=== PATIENT | female | born 1935 | race Caucasian/White ===

== ENCOUNTER → 2016-11-08 | Outpatient (CLI) | payer OTHER ==
[2016-11-08 12:36] LABS: ASPARTATE AMINO TRANSFERASE 33 IU/L (8-39); BILIRUBIN,TOTAL 0.7 mg/dL (0.3-1.2); BLOOD UREA NITROGEN 27 mg/dL (7-22); CALCIUM 9.6 mg/dL (8.7-10.7); CHLORIDE 107 meq/L (98-112); CREATININE 1.8 mg/dL (0.50-1.20); GLUCOSE 95 mg/dL (78-110); POTASSIUM 4.2 meq/L (3.8-5.2); SODIUM 144 meq/L (135-145); TOTAL PROTEIN 7.5 g/dL (6.1-8.0)
== END ==
LOC: LAB 11:21
PROVIDERS: ATTEND Internal Medicine Gastroenterology
DX: K86.81 Exocrine pancreatic insufficiency (principal); K86.1 Other chronic pancreatitis
CPT/HCPCS: 36415; 80053; 83690

== ENCOUNTER → 2016-11-14 | Outpatient (CLI) | payer OTHER | LOC: MMPC 11:11 | PROVIDERS: ATTEND Internal Medicine | DX: I48.91 Unspecified atrial fibrillation (principal); K86.1 Other chronic pancreatitis; J44.9 Chronic obstructive pulmonary disease, unspecified; E53.8 Deficiency of other specified B group vitamins; Z95.0 Presence of cardiac pacemaker | CPT/HCPCS: 99214; G0463; J3420 ==

== ENCOUNTER → 2017-01-04 | Outpatient (CLI) | payer OTHER | LOC: MMPC 11:11 | PROVIDERS: ATTEND Internal Medicine | DX: E53.8 Deficiency of other specified B group vitamins (principal); M81.0 Age-related osteoporosis without current pathological fracture | CPT/HCPCS: G0463; J0897; J3420 ==

== ENCOUNTER 2017-02-06 18:20 | Emergency (ER) | payer OTHER ==
[2017-02-06] MEDS ORDERED: NORMAL SALINE 10 ML SYRINGE FLUSH IVP PRN (18:51)
--- NOTE | 2017-02-06 19:02 | PDOC ---
Dyspnea HPI - General Chief Complaint: General Medical Stated Complaint: SWELLING LE RAHEEM, SHORTNESS OF BREATH Date Seen by Provider: 02/06/17 Time Seen by Provider: 19:02 - History of Present Illness Initial Comments: Patient is a very nice 81-year-old woman who presents to the emergency department complaining that she has increased weakness tiredness and some subjective increase in dyspnea as well. She has history of multiple strokes which kind of keeps her down but she feels like she is doing a little bit worse than normal. She also believes she has had some recent unexplained weight gain is concerned that his fluid weight. She apparently discussed this with her primary care provider was encouraged come to the emergency department for evaluation. She denies any fever or chills or cough or dizziness or syncope no substantial GI changes. - Patient Home Medications Home Medications: Home Medications Pravastatin Sodium [Pravachol Tab] 1 tab ORAL QD #90 tab 01/22/16 Gabapentin 2 cap PO QHS #180 cap 02/16/16 Aspirin [Aspir 81] 1 tab ORAL QD #0 tab 08/01/16 Ferrous Sulfate 1 tab PO BID #0 tab 08/01/16 JPM-Cyanocobalamin [Jpm - Vitamin B-12] 1,000 mcg IM MONTHLY #1 ml 08/01/16 Magnesium Oxide 1 tab PO BID #0 tab 08/01/16 Multivitamin [Multivitamins] 1 tab PO DAILY #0 tab 08/01/16 Thiamine HCl [B-1] 1 tab PO QD #0 tab 08/01/16 Warfarin Sodium 1 tab PO DAILY #0 tab 08/01/16 Acetaminophen 1 tab PO Q4H PRN #120 tab 08/12/16 Multivitamin [Multi-Vitamin Daily] 1 each PO QD #30 tab 08/12/16 Azithromycin 1 tab PO DAILY #3 tab 10/03/16 Metoprolol Succinate 1 tab PO DAILY #0 tab 10/06/16 Lipase/Protease/Amylase [Zenpep Dr 10,000 Units Capsule] 1 each PO cap Azithromycin 1 tab PO DAILY #3 tab 11/21/16 Pantoprazole Sodium 1 tab PO DAILY #90 tab 11/23/16 Allopurinol 1 tab ORAL QD #90 tab 12/06/16 Zolpidem Tartrate 1 tab PO QHS PRN #30 tab 01/31/17 - Patient Allergies Allergies/Adverse Reactions: Allergies Allergy/AdvReac Type Severity Reaction Status Date / Time latex [Latex] Allergy Intermediate BREAK OUT Verified 02/06/17 18:41 WITH RASH Penicillins AdvReac Severe NAUSEA Verified 02/06/17 18:41 egg [Egg] AdvReac Intermediate NAUSEA Verified 02/06/17 18:41 lisinopril AdvReac Intermediate COUGH Verified 02/06/17 18:41 Past Medical History - heen HEENT History: Denies History Cardiovascular History: Hypertension, CAD, Arrhythmia, Pacemaker, Hyperlipidemia , Other (please comment) Additional Cardiovasular History: atrial septal defect Respiratory History: COPD Gastrointestinal History: GERD, Pancreatitis Genitourinary History: Renal Disease, Kidney Stones Endocrine History: Hypothyroidism Musculoskeletal History: Arthritis, Gout Neurological History: CVA, Other (please comment) Additional Neurological History: embolic stroke Blood Disorders: Anemia 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 Psychiatric History: Denies History History of Sexually Transmitted Diseases: No Female Reproductive History: Breast Lumps, Hysterectomy Obstetrical History: Denies History Cancer History: Denies History In Past Year Been Physically Harmed or Verbally Threatened: No History of MDRO: No History of Other Communicable Diseases: No Tobacco Use: Current Every Day Smoker Alcohol Use: None Substance Use Type: None Previous Surgical History: Yes Type / Date of Surgery: APPY, T&A, OPEN HEART, PACEMAKER, CAROTID ARTERY, KNEE, PARTIAL HYST, PARATHYROIDECTOMY Anesthesia Reactions: No Significant Family History: No pertinent family hx Past Medical History Reviewed: Reviewed - No Changes ROS - Limitations ROS Limitations: No Limitations Constitution: REPORTS: Denies Symptoms Neurological: REPORTS: Denies Neuro Symptoms Gastrointestinal: REPORTS: Denies GI Symptoms Musculoskeletal: REPORTS: Denies MS Symptoms Eyes: REPORTS: Denies Symptoms Dyspnea Physical Exam - General Appearance General Appearance: REPORTS: Alert, Cooperative, No Acute Distress - HEENT HEENT: POSITIVE: Head Inspection Nml, Eyes Inspection Nml - Respiratory Respiratory: REPORTS: No Respiratory Distress, Other (few crackles otherwise clear) - Cardiovascular Cardiovascular: REPORTS: Regular Rate and Rhythm - Abdomen Abdomen: Soft: (All Quadrants), Normal Bowel Sounds: (All Quadrants), Denies Tenderness: (All Quadrants) - Skin Skin: REPORTS: Intact, Normal For Race - Extremities Additional Extremities Details: 1+ pitting edema in the ankles - Neurological / Psychological Neurological: POSITIVE: Affect Apporpriate, Oriented X3 Dyspnea Progress - Results Reviewed by me Xrays/CTs/US Reviewed by me: Yes Lab Results Reviewed: Yes Lab Results:: Laboratory Results 02/06/17 Range/Units 19:04 WBC 6.46 (4.8-10.8) 10^3/uL RBC 3.79 L (4.20-5.40) 10^6/uL Hgb 12.3 (12.0-16.0) g/dL Hct 37.7 (37.0-47.0) % MCV 99.5 H (81-99) FL MCH 32.5 H (27-31) PG MCHC 32.6 L (33-37) g/dL RDW Std Deviation 60.4 H (39-50) fL RDW Coeff of Padmini 17.0 H (11.5-14.5) % Plt Count 188 (140-350) 10*3/uL MPV 10.3 (7.4-12.2) FL Immature Gran % (Auto) 0.5 (0-5) % Neut % (Auto) 60.4 (50-80) % Lymph % (Auto) 20.9 (10-50) % Dickenson % (Auto) 15.6 H (5-15) % Eos % (Auto) 2.0 (0-8) % Baso % (Auto) 0.6 (0-1) % Immature Gran # (Auto) 0.03 10*3/UL Neut # (Auto) 3.90 10*3/UL Lymph # (Auto) 1.35 10*3/uL Dickenson # (Auto) 1.01 H (0.3-0.8) 10*3/UL Eos # (Auto) 0.13 10*3/UL Baso # (Auto) 0.04 10*3/UL WBC Morphology Comment Normal morphology (NORM) Plt Morphology Comment Normal morphology (NORM) RBC Morph Comment Normal morphology (NORM) PT 30.8 H (9.7-11.4) secs INR 2.93 (0.00-5.90) N/A Sodium 138 (135-145) meq/L Potassium 4.2 (3.8-5.2) meq/L Chloride 107 (98-112) meq/L Carbon Dioxide 20 L (23-33) meq/L Anion Gap 11 (5-20) BUN 26 H (7-22) mg/dL Creatinine 1.4 H (0.50-1.20) mg/dL Estimated GFR Marketing Strategist BUN/Creatinine Ratio 18.57 (6-20) Glucose 81 (78-110) mg/dL Calculated Osmolality 289.0 (267-292) mOsm/kg Calcium 8.7 (8.7-10.7) mg/dL Total Bilirubin 1.1 (0.3-1.2) mg/dL AST 33 (8-39) IU/L ALT 18 (9-52) IU/L Alkaline Phosphatase 241 H (38-126) IU/L NT-Pro-B Natriuret Pep 3490 H (0-450) PG/ML Total Protein 7.8 (6.1-8.0) g/dL Albumin 4.1 (3.5-4.8) g/dL Globulin 3.8 (2.50-4.10) g/dL Albumin/Globulin Ratio 1.00 L (1.3-2.0) mg/g - Patient's Progress MDM / ED Course: This patient presented with some vague symptoms of increased lethargy and some increase in shortness of breath over last few days. Her chest x-ray is not terribly remarkable but she does seem to have a right-sided pleural effusion. Ultimately her oxygen saturations are okay she is not She is not tachycardic but she does have a significantly elevated BNP. I'm not sure what her baseline BNP is but I'm assuming that it somewhat elevated given the fact that she has a BNP of greater than 3000 and does not appear to be in any sort of decompensated heart failure. She has not been taking any Lasix recently. I've encouraged her start back on 1 Lasix tab a day and to see her supervisor stave cutting and primary care physician in the very near future. I've also reiterated sodium restriction and fluid restriction for her. I have stressed the importance of getting electrolytes monitored closely after starting back on her diuretics. She is going to see her primary care provider or supervisor stave cutting in the next 1-2 days. Patient Care Time - Estimated PCT Patient Care Time (In Minutes): 30 Vital Signs - VS Reviewed Vital Signs Reviewed: Yes Discharge Clinical Impression: CHF (congestive heart failure) Qualifiers: Qualifier Code: (I50.23) Acute on chronic systolic (congestive) heart failure Discharge Disposition: Discharged to Home Condition: Stable Patient Instructions Given at Discharge: Heart Failure (ED) Additional Instructions: You're given a injection of Lasix tonight. This should help get rid of fluid from your tissues and lungs. Please take one of your home Lasix tabs daily until seen by your primary care doctor or supervisor stave cutting EDB seen in the next 1-2 days by cardiology or primary care to evaluate sure electrolytes your kidney function and your respiratory status Return here to the emergency department immediately if you have increasing shortness of breath or any other signs or symptoms of concern Follow Up With: SANDRINE DYER [Primary Care Provider] -
[2017-02-06 19:10] LABS: BASOPHILS # (AUTO) 0.04 10*3/UL; BASOPHILS % (AUTO) 0.6 % (0-1); EOSINOPHILS # (AUTO) 0.13 10*3/UL; HEMATOCRIT 37.7 % (37.0-47.0); HEMOGLOBIN 12.3 g/dL (12.0-16.0); LYMPHOCYTES # (AUTO) 1.35 10*3/uL; MEAN CORPUSCULAR HEMOGLOBIN 32.5 PG (27-31); MEAN CORPUSCULAR HGB CONC 32.6 g/dL (33-37); MEAN CORPUSCULAR VOLUME 99.5 FL (81-99); MEAN PLATELET VOLUME 10.3 FL (7.4-12.2); MONOCYTES # (AUTO) 1.01 10*3/UL (0.3-0.8); MONOCYTES % (AUTO) 15.6 % (5-15); NEUTROPHILS % (AUTO) 60.4 % (50-80); RED BLOOD COUNT 3.79 10^6/uL (4.20-5.40)
[2017-02-06 19:17] LABS: BLOOD UREA NITROGEN 26 mg/dL (7-22); BUN/CREATININE RATIO 18.57 (6-20); CALCIUM 8.7 mg/dL (8.7-10.7); PLATELET MORPHOLOGY COMMENT NORMAL MORPHOLOGY (NORM); RBC MORPHOLOGY COMMENT NORMAL MORPHOLOGY (NORM); SERUM ALBUMIN 4.1 g/dL (3.5-4.8); WBC MORPHOLOGY COMMENT NORMAL MORPHOLOGY (NORM)
[2017-02-06] MEDS ORDERED: FUROSEMIDE 10 MG/1 ML - 4 ML IVP ONE (19:30)
--- NOTE | 2017-02-06 19:31 | DI ---
PA /LATERAL CHEST X-RAY, 02/06/2017 6:51 PM : Clinical History: Dyspnea. History of CHF. Previous Exam: 01/13/2016. There is no acute soft tissue or bony abnormality. The patient is status post CABG. There is a dual-c hamber pacemaker and the leads are in the appropriate position. There is cardiomegaly with CHF. The h eart has a "globular" configuration and there is no separation of the epicardial fat pad from the per icardial fat pad suggesting this is a cardiomyopathy. With the underlying coronary artery disease, th e etiology most likely is ischemic cardiomyopathy. There is a small right pleural effusion with right lower lobe atelectasis. There is substantial "tram tracking" indicating chronic bronchitis or more l ikely chronic bronchiectasis. It is most pronounced on the right side raising the possibility of machine feeder raw stock bebeto aspiration pneumonia. Mediastinal structures are normal. There are no pulmonary nodules. Readin. Cardiomegaly with CHF. The heart has a "globular" configuration without evidence of separation of the epicardial fat pad from the pericardial fat pad making a cardiomyopathy more likely. With underl radha coronary artery disease, ischemic cardiomyopathy is the most likely etiology. 2. Small right pleural effusion with right lower lobe atelectasis. This patient may also have underl radha chronic bronchiectasis secondary to chronic aspiration pneumonia.
[2017-02-07 02:48] VITALS: RESP 20; TEMP 97.5
== END 2017-02-06 21:25 | disposition home or self-care (01) ==
LOC: ER 18:20
DX: I50.23 Acute on chronic systolic (congestive) heart failure (principal); R06.00 Dyspnea, unspecified; R53.1 Weakness; Z72.0 Tobacco use
CPT/HCPCS: 71020; 80053; 83880; 85025; 85610; 96374; 99283; J1940

== ENCOUNTER → 2017-02-09 | Outpatient (CLI) | payer OTHER ==
[2017-02-09 16:23] LABS: BLOOD UREA NITROGEN 28 mg/dL (7-22); BUN/CREATININE RATIO 15.55 (6-20); LIPASE 195 IU/L (23-300); SERUM ALBUMIN 3.8 g/dL (3.5-4.8)
== END ==
LOC: LAB 14:37
PROVIDERS: ATTEND Internal Medicine Gastroenterology
DX: K86.81 Exocrine pancreatic insufficiency (principal)
CPT/HCPCS: 36415; 80053; 83690

== ENCOUNTER → 2017-02-13 | Outpatient (CLI) | payer OTHER ==
[2017-02-13 17:03] LABS: BLOOD UREA NITROGEN 24 mg/dL (7-22); BUN/CREATININE RATIO 13.33 (6-20); CALCIUM 8.9 mg/dL (8.7-10.7); SERUM ALBUMIN 3.8 g/dL (3.5-4.8)
[2017-02-13 17:49] LABS: PHOSPHORUS 3.4 mg/dl (2.4-4.3)
== END ==
LOC: MOB LAB 14:55
PROVIDERS: ATTEND Internal Medicine
DX: I50.42 Chronic combined systolic (congestive) and diastolic (congestive) heart failure (principal); E21.3 Hyperparathyroidism, unspecified; I10 Essential (primary) hypertension; F17.200 Nicotine dependence, unspecified, uncomplicated
CPT/HCPCS: 80053; 82306; 83880; 84100

== ENCOUNTER → 2017-03-10 | Outpatient (CLI) | payer OTHER ==
[2017-03-10 10:52] LABS: BLOOD UREA NITROGEN 23 mg/dL (7-22); BUN/CREATININE RATIO 15.33 (6-20); CALCIUM 9.2 mg/dL (8.7-10.7); LIPASE 186 IU/L (23-300); SERUM ALBUMIN 3.9 g/dL (3.5-4.8)
== END ==
LOC: LAB 09:48
PROVIDERS: ATTEND Internal Medicine Gastroenterology
DX: K86.1 Other chronic pancreatitis (principal); K86.81 Exocrine pancreatic insufficiency
CPT/HCPCS: 36415; 80053; 82150; 83690

== ENCOUNTER → 2017-03-21 | Outpatient (CLI) | payer OTHER ==
[2017-03-21 10:27] LABS: BLOOD UREA NITROGEN 26 mg/dL (7-22); BUN/CREATININE RATIO 18.57 (6-20); CALCIUM 8.4 mg/dL (8.7-10.7); PHOSPHORUS 3.4 mg/dl (2.4-4.3); SERUM ALBUMIN 3.9 g/dL (3.5-4.8)
== END ==
LOC: LAB 09:53
PROVIDERS: ATTEND Internal Medicine
DX: I50.42 Chronic combined systolic (congestive) and diastolic (congestive) heart failure (principal); I12.9 Hypertensive chronic kidney disease with stage 1 through stage 4 chronic kidney disease, or unspecified chronic kidney disease; N18.3 Chronic kidney disease, stage 3 (moderate); D63.1 Anemia in chronic kidney disease; N25.81 Secondary hyperparathyroidism of renal origin; I27.2 Other secondary pulmonary hypertension; I48.91 Unspecified atrial fibrillation; J44.9 Chronic obstructive pulmonary disease, unspecified; Z95.0 Presence of cardiac pacemaker; G47.34 Idiopathic sleep related nonobstructive alveolar hypoventilation
CPT/HCPCS: 36415; 80069; 83540; 83550; 83880; 83970; 99214; G0463; J3420

== ENCOUNTER → 2017-03-28 | Outpatient (CLI) | payer OTHER ==
[2017-03-28 10:54] LABS: BLOOD UREA NITROGEN 24 mg/dL (7-22); BUN/CREATININE RATIO 17.14 (6-20); CALCIUM 8.9 mg/dL (8.7-10.7); PHOSPHORUS 3.8 mg/dl (2.4-4.3); SERUM ALBUMIN 3.6 g/dL (3.5-4.8)
== END ==
LOC: LAB 10:08
PROVIDERS: ATTEND Internal Medicine Nephrology
DX: E87.0 Hyperosmolality and hypernatremia (principal)
CPT/HCPCS: 36415; 80069

== ENCOUNTER → 2017-05-09 | Outpatient (CLI) | payer OTHER ==
[2017-05-09 15:59] LABS: BLOOD UREA NITROGEN 23 mg/dL (7-22); BUN/CREATININE RATIO 16.42 (6-20); CALCIUM 8.7 mg/dL (8.7-10.7); SERUM ALBUMIN 3.7 g/dL (3.5-4.8)
[2017-05-09 16:00] LABS: LIPASE 211 IU/L (23-300)
[2017-05-09 16:10] LABS: BLOOD UREA NITROGEN 23 mg/dL (7-22); BUN/CREATININE RATIO 16.42 (6-20); CALCIUM 8.7 mg/dL (8.7-10.7); PHOSPHORUS 3.8 mg/dl (2.4-4.3); SERUM ALBUMIN 3.7 g/dL (3.5-4.8)
[2017-05-09 16:37] LABS: HEMATOCRIT 34.3 % (37.0-47.0); HEMOGLOBIN 11.1 g/dL (12.0-16.0); MEAN CORPUSCULAR HEMOGLOBIN 31.6 PG (27-31); MEAN CORPUSCULAR HGB CONC 32.4 g/dL (33-37); MEAN CORPUSCULAR VOLUME 97.7 FL (81-99); MONOCYTES % (AUTO) 13.1 % (5-15); NEUTROPHILS % (AUTO) 59.9 % (50-80); RED BLOOD COUNT 3.51 10^6/uL (4.20-5.40)
[2017-05-09 16:38] LABS: BASOPHILS % (AUTO) 1.5 % (0-1); EOSINOPHILS # (AUTO) 0.22 10*3/UL; EOSINOPHILS % (AUTO) 3.2 % (0-8); LYMPHOCYTES # (AUTO) 1.49 10*3/uL; MONOCYTES # (AUTO) 0.89 10*3/UL (0.3-0.8); NEUTROPHILS # (AUTO) 4.08 10*3/UL; PLATELET MORPHOLOGY COMMENT NORMAL MORPHOLOGY (NORM); RBC MORPHOLOGY COMMENT NORMAL MORPHOLOGY (NORM); WBC MORPHOLOGY COMMENT NORMAL MORPHOLOGY (NORM)
== END ==
LOC: LAB 14:58
PROVIDERS: ATTEND Internal Medicine Gastroenterology
DX: K86.1 Other chronic pancreatitis (principal); K86.81 Exocrine pancreatic insufficiency; D50.9 Iron deficiency anemia, unspecified; I12.9 Hypertensive chronic kidney disease with stage 1 through stage 4 chronic kidney disease, or unspecified chronic kidney disease; N18.3 Chronic kidney disease, stage 3 (moderate); D63.1 Anemia in chronic kidney disease; N25.81 Secondary hyperparathyroidism of renal origin; I50.9 Heart failure, unspecified; I27.2 Other secondary pulmonary hypertension
CPT/HCPCS: 36415; 80053; 80069; 82150; 82306; 82565; 82728; 83540; 83550; 83690; 83880; 83970; 84156; 85025

== ENCOUNTER → 2017-05-19 | Outpatient (CLI) | payer OTHER ==
--- NOTE | 2017-05-19 12:35 | DI ---
XR CXR 2VW PA/LAT,05/19/2017 12:02 PM: Clinical History: Chronic cough Previous Exam: January 2014 Findings: PA and lateral views of the chest are obtained, and demonstrate cardiomegaly. There has been resoluti on of a right pleural effusion. Patient is status post sternotomy. Peripheral vascular calcifications are seen. Pacemaker device is also noted. Impression: 1. Interval resolution of a right pleural effusion. 2. Stable cardiomegaly.
== END ==
LOC: MOB RAD 12:09
PROVIDERS: ATTEND Internal Medicine
DX: R05 Cough (principal); D50.9 Iron deficiency anemia, unspecified; I48.91 Unspecified atrial fibrillation; I27.2 Other secondary pulmonary hypertension; I50.9 Heart failure, unspecified; E78.5 Hyperlipidemia, unspecified; J90 Pleural effusion, not elsewhere classified; Z72.0 Tobacco use; Z87.39 Personal history of other diseases of the musculoskeletal system and connective tissue
CPT/HCPCS: 71020; 99214; G0463

== ENCOUNTER → 2017-05-24 | Outpatient (CLI) | payer OTHER | LOC: LAB 11:16 | PROVIDERS: ATTEND Internal Medicine Gastroenterology | DX: K86.1 Other chronic pancreatitis (principal) | CPT/HCPCS: 82710 ==